=== PATIENT | female | born 1980 | race Caucasian/White ===

== ENCOUNTER 2024-05-19 22:30 | Emergency (ER) | payer SELFPAY ==
[2024-05-19 22:33] VITALS: BP 135/91; BMI 19.0
--- NOTE | 2024-05-19 22:53 | ED.GENMED ---
History of Present Illness
General
Chief Complaint: Alcohol Problem
Source: patient
Exam Limitations: altered mental status
Time Seen by Provider: 05/19/24 22:40
Nursing documentation reviewed up to this point in time: agreed with
History of Present Illness
History of Present Illness:
Patient is a 43-year-old female who presents to the emergency department via EMS after being found down on the lawn in the rain at a [place] party. The rest of the circumstances are unknown. Patient denies any pain. Patient denies any injuries. Patient
does suffer from anxiety. The rest of the medical history is somewhat foggy. Patient denies any drug use. Patient said she had 1 drink. Patient is unsure of how she got here and why she is here.
Past History
Past History
ED Past Medical History: Psychiatric (Anxiety)
ED Past Surgical History: Other (Breast reduction)
Social History
Tobacco: Non-smoker
Drug: None
Review of Systems
Review of Systems
Unable to obtain full review of systems at this time due to: other (Due to intoxication)
All Other Systems: Not applicable
Phy Exam
Physical Exam
Physical Exam:
Physical Exam
General: No apparent distress, alert and appropriate but does appear intoxicated, well nourished, well hydrated
HENT: Normocephalic and atraumatic as well as nontender, supple with no lymphadenopathy, no thyromegaly. No tracheal deviation or contusion.
Eyes: Clear sclera, conjuctiva with injection bilaterally
Heart: Regular rhythm and rate. No S3, S4. No murmur. No NVD
Lungs: No respiratory distress, no stridor, lung sounds clear and equal bilaterally, chest wall symmetrical and nontender
Abdomen: Soft, nontender, no organomegaly, BS good
Neuro: Alert and oriented x 3, CN II - XII intact, no motor focality, no cerebellar dysfunction
Skin: no rash
Psychiatric: well kept. interactive and cooperative
Extremities: No edema, cyanosis, tenderness, Good and equal peripheral pulses.
Musculoskeletal: No cervical, thoracic or lumbar spine tenderness. No pelvic or hip tenderness.
Scores
Withdrawal Assessment of Alcohol
Withdrawal Assessment Completed?: No
Course
Orders/Labs/Results
Orders:
Orders
05/19/24 22:48
Test Result ONCE
05/19/24 22:59
Alcohol Urgent
Complete Blood Count/With Diff Urgent
Comprehensive Metabolic Panel Urgent
HCG, Serum Qualitative Screen Urgent
Abnormal Lab Results
05/19/24
22:59
MCV 99.4 H fL
(81.0-99.0)
MCH 33.3 H pg
(27.0-31.0)
Absolute Monos (auto) 0.8 H 10^3/uL
(0.1-0.6)
Glucose 106 H mg/dl
(70-99)
AST 48 H U/L
(14-36)
ALT 43 H U/L
(0-35)
Alcohol, Quantitative 435 H* mg/dl
05/19/24 22:59
05/19/24 22:59
Vital Signs
Initial and Last Documented VS:
Initial Vital Signs
Temp Pulse Resp BP Pulse Ox
98.2 F 100 16 135/91 99
05/19/24 22:33 05/19/24 22:33 05/19/24 22:33 05/19/24 22:33 05/19/24 22:33
Last Documented Vital Signs
Temp Pulse Resp BP Pulse Ox
98.2 F 79 16 125/69 96
05/19/24 22:33 05/20/24 07:21 05/20/24 07:21 05/20/24 07:21 05/20/24 07:21
*Radiology
Radiology exam reviewed: other (Not applicable)
*Pulse Oximetry
Patient hypoxic: no
*EKG
Interpreted by ED Provider?: NA
*Quality Officer Interpretation
Rate: Quality Officer- N/A
*Critical Care Note
Total Time (30-74mins, 75-104mins- exclusive of procedures): Not Applicable
Update Note
Update Note:
Patient is resting comfortably. Patient's alcohol is extremely high. Did notice that the patient has a mildly elevated MCV. Patient may have a chronic problem with alcohol. However at a level 435 and the patient is still able to speak although
not particularly lucidly I suspect this is a ongoing chronic problem. There is no one here with the patient. Will have the patient sleep in the ER for reevaluation discharge in the morning. Also give the patient the option of bcares.
ED Attending Note
-
Portions of this chart may have been created with voice recognition software.� Occasional wrong word or��sound alike� substitutions may have occurred due to the inherent limitations of voice recognition software.
Discharge Plan
Departure
Patient Disposition: Home (Routine Discharge)
Date of Disposition: 05/20/24
Time of Disposition: 07:01
Patient with high blood pressure during this ER visit?: No
Condition: Fair
Covid-19: Not Applicable
Discharge Problem:
Alcohol intoxication
Instructions: Alcohol Use Disorder (DC)
Prescriptions:
No Action
No Current Medications
0
Referrals:
[facility] [Active] - As needed
Interventions
Interventions:
*Risk Screen - Suicide Last Done: 05/19/24 22:33
*General Assessment Last Done: 05/19/24 22:33
*Neglect/Abuse Screening Last Done: 05/19/24 22:33
ED- Fall Risk Assessment Last Done: 05/19/24 22:42
*ED COVID-19 Vaccine History Last Done: 05/19/24 22:33
*Nursing Disposition Last Done: 05/20/24 07:21
ED- Neurological Assessment Last Done: 05/19/24 22:42
ED-Psychological Assessment Last Done: 05/19/24 22:42
Discharge Date and Time
Discharge Date/Time: 05/20/24 07:23
Print Language: SAMOAN
[2024-05-19 23:07] LABS: % Basophils 0.6 % (0-2); % Eosinophils 1.1 % (0-6); % Immature Granulocytes 0.2 % (0-0.5); % Lymphocytes 30.3 % (20.5-51.1); % Monocytes 8.3 % (1.7-9.3); % Neutrophils 59.5 % (42.2-75.2); Absolute Basophils 0.1 10^3/uL (0-0.2); Absolute Eosinophils 0.1 10^3/uL (0-0.7); Absolute Lymphocytes 2.9 10^3/uL (1.2-3.4); Absolute Monocytes 0.8 10^3/uL (0.1-0.6); Absolute Neutrophils 5.7 10^3/uL (1.4-6.5); Hematocrit 46.9 % (37.0-47.0); Hemoglobin 15.7 g/dL (12.0-16.0); Mean Corp Hgb Conc. 33.5 g/dL (33.0-37.0); Mean Corpuscular Hgb 33.3 pg (27.0-31.0); Mean Corpuscular Volume 99.4 fL (81.0-99.0); Mean Platelet Volume 8.7 fL (7.4-10.4); Nucleated Red Blood Cells % 0 %; Platelet Count 268 10^3/uL (130-400); Red Blood Cell Count 4.72 10^6/uL (4.20-5.40); Red Cell Dist. Width 12.6 % (11.5-14.5); White Blood Cell Count 9.5 10^3/uL (4.8-10.8)
[2024-05-19 23:21] LABS: HCG, Serum Qualitative Screen Negative
[2024-05-19 23:24] LABS: ALT (SGPT) 43 U/L (0-35); AST (SGOT) 48 U/L (14-36); Alkaline Phosphatase 79 U/L (38-126); Blood Urea Nitrogen 17 mg/dl (7-17); Calcium 10.1 mg/dl (8.4-10.2); Carbon Dioxide 22 mmol/L (22-30); Chloride 105 mmol/L (98-107); Estimated Creatinine Clearance 107 ml/min; Glucose 106 mg/dl (70-99); Potassium 4.2 mmol/L (3.5-5.1); Sodium 145 mmol/L (135-145); Total Bilirubin 0.4 mg/dl (0.2-1.3); Total Protein 8.2 g/dl (6.3-8.2); eGFR > 60.00
[2024-05-19 23:41] LABS: Alcohol 435 mg/dl
[2024-05-20 03:40] VITALS: BP 95/63
[2024-05-20 07:21] VITALS: BP 125/69
== END 2024-05-20 07:23 | disposition home or self-care (01) ==
LOC: EMR 22:30
PROVIDERS: EMERGENCY PHYSICIAN Emergency Medicine; FAMILY PHYSICIAN Family Medicine Sports Medicine
DX: F10.129 Alcohol abuse with intoxication, unspecified (principal); F41.9 Anxiety disorder, unspecified
CPT/HCPCS: 99283; 80053; 82077; 84703; 85025